=== PATIENT | female | born 1995 | race American Indian/Alaskan Native ===

== ENCOUNTER 2017-06-06 18:08 | Emergency (ER) | payer MEDICAID ==
[2017-06-06 18:24] VITALS: BP 114/80
== END 2017-06-06 21:04 | disposition left against medical advice (07) ==
LOC: ED 18:08
DX: R69 Illness, unspecified (principal); Z53.21 Procedure and treatment not carried out due to patient leaving prior to being seen by health care provider

== ENCOUNTER 2017-09-02 07:10 | Emergency (ER) | payer MEDICAID ==
[2017-09-02 08:50] VITALS: BP 109/58
--- NOTE | 2017-09-02 08:51 | Emergency Department Report ---
- General Chief Complaint: Upper Respiratory Infection Stated Complaint: URI SX Time Seen by Provider: 09/02/17 08:37 Source: patient Mode of arrival: Ambulatory Limitations: No Limitations - History of Present Illness Initial Comments: 22-year-old female past medical history none presents with complaint of persistent cough nonproductive for approximately 2 weeks. Patient is awake alert and oriented 3 speaking in full sentences fully lucid. Denies sore throat or earache. States that she has a persistent cough which keeps her up at night. Denies fever or chills. States that after coughing fits she does become nauseous and has had some vomiting. Denies chest pain and pleuritic chest pain palpitations or shortness of breath at rest. Denies abdominal pain. Denies any recent travel or sick contacts. Does complain of some nasal congestion as well. States she has been taking [id number] medicines with minimal relief of her cough. Denies smoking. MD Complaint: cough Onset/Timin -: week(s) Severity: moderate Consistency: intermittent Associated Symptoms: cough, nausea Treatments Prior to Arrival: "cold medicine" - Related Data Previous Rx's Medication Instructions Recorded Last Taken Type ALBUTEROL Inhaler [ProAir HFA 2 puff IH QID PRN #1 inhalation 06/20/14 Unknown Rx Inhaler] Azithromycin [Zithromax Z-MARLEE] 250 mg PO DAILY #6 tablet 06/20/14 Unknown Rx Benzonatate [Tessalon Perles] 100 mg PO Q8HR PRN #30 capsule 06/20/14 Unknown Rx Prednisone [Prednisone 5 mg (6-Day 5 mg PO .TAPER #1 tab.ds.pk 06/20/14 Unknown Rx Pack, 21 Tabs)] Albuterol Sulfate [Ventolin Hfa] 1 puff IH Q4H PRN #1 hfa.aer.ad 09/02/17 Unknown Rx Azithromycin [Zithromax Z-MARLEE] 250 mg PO QDAY #1 pack 09/02/17 Unknown Rx Benzonatate [Tessalon Perles] 100 mg PO Q8HR PRN #25 capsule 09/02/17 Unknown Rx Brompheniramine/Pseudoephed/Dm 10 ml PO Q6H PRN #1 syrup 09/02/17 Unknown Rx [Bromfed Dm Cough Syrup] Allergies Allergy/AdvReac Type Severity Reaction Status Date / Time No Known Allergies Allergy Unverified 06/20/14 19:26 ED Review of Systems ROS: Stated complaint: URI SX Other details as noted in HPI Constitutional: denies: chills, fever Eyes: denies: eye pain, eye discharge, vision change ENT: denies: ear pain, throat pain Respiratory: cough. denies: shortness of breath, wheezing Cardiovascular: denies: chest pain, palpitations Endocrine: no symptoms reported Gastrointestinal: nausea. denies: abdominal pain, diarrhea Genitourinary: denies: urgency, dysuria, discharge Musculoskeletal: denies: back pain, joint swelling, arthralgia Skin: denies: rash, lesions Neurological: denies: headache, weakness, paresthesias Psychiatric: denies: anxiety, depression Hematological/Lymphatic: denies: easy bleeding, easy bruising ED Past Medical Hx - Past Medical History Previous Medical History?: Yes Additional medical history: vaginal dleivery 06-01-2016 - Surgical History Past Surgical History?: No - Social History Smoking Status: Never Smoker Substance Use Type: Alcohol - Medications Home Medications: Home Medications Medication Instructions Recorded Confirmed Last Taken Type ALBUTEROL Inhaler [ProAir HFA 2 puff IH QID PRN #1 inhalation 06/20/14 Unknown Rx Inhaler] Azithromycin [Zithromax Z-MARLEE] 250 mg PO DAILY #6 tablet 06/20/14 Unknown Rx Benzonatate [Tessalon Perles] 100 mg PO Q8HR PRN #30 capsule 06/20/14 Unknown Rx Prednisone [Prednisone 5 mg (6-Day 5 mg PO .TAPER #1 tab.ds.pk 06/20/14 Unknown Rx Pack, 21 Tabs)] Albuterol Sulfate [Ventolin Hfa] 1 puff IH Q4H PRN #1 hfa.aer.ad 09/02/17 Unknown Rx Azithromycin [Zithromax Z-MARLEE] 250 mg PO QDAY #1 pack 09/02/17 Unknown Rx Benzonatate [Tessalon Perles] 100 mg PO Q8HR PRN #25 capsule 09/02/17 Unknown Rx Brompheniramine/Pseudoephed/Dm 10 ml PO Q6H PRN #1 syrup 09/02/17 Unknown Rx [Bromfed Dm Cough Syrup] ED Physical Exam - General Limitations: No Limitations General appearance: alert, in no apparent distress - Head Head exam: Present: atraumatic, normocephalic - Eye Eye exam: Present: normal appearance - ENT ENT exam: Present: mucous membranes moist - Neck Neck exam: Present: normal inspection - Respiratory Respiratory exam: Present: normal lung sounds bilaterally. Absent: respiratory distress - Cardiovascular Cardiovascular Exam: Present: regular rate, normal rhythm. Absent: systolic murmur, diastolic murmur, rubs, gallop - GI/Abdominal GI/Abdominal exam: Present: soft, normal bowel sounds - Extremities Exam Extremities exam: Present: normal inspection - Back Exam Back exam: Present: normal inspection - Neurological Exam Neurological exam: Present: alert, oriented X3, CN II-XII intact - Psychiatric Psychiatric exam: Present: normal affect, normal mood - Skin Skin exam: Present: warm, dry, intact, normal color. Absent: rash ED Course Vital Signs 09/02/17 07:20 Temperature 98.3 F Pulse Rate 103 H Respiratory 16 Rate Blood Pressure 128/82 O2 Sat by Pulse 97 Oximetry ED Medical Decision Making - Medical Decision Making A/P: Acute bronchitis 1- albuterol inhaler, azithromycin marlee ( 2 weeks of symptoms), Tessalon Perles, Claritin, Bromfed 2- vital signs stable for discharge 3- PERC negative 4-follow-up with primary doctor. I advised patient to follow up with primary care or to return to the ED for any inability to tolerate by mouth fluid or food persistent nausea and vomiting severe fevers and chills or fevers persistently above 100.4 despite antipyretic use, severe lethargy. Patient stated he understood my instructions. I advised patient to remain well- hydrated. Critical care attestation.: If time is entered above; I have spent that time in minutes in the direct care of this critically ill patient, excluding procedure time. ED Disposition Clinical Impression: Acute bronchitis Qualifiers: Bronchitis organism: unspecified organism Qualified Code(s): J20.9 - Acute bronchitis, unspecified Disposition: - TO HOME OR SELFCARE Is pt being admited?: No Does the pt Need Aspirin: No Condition: Stable Instructions: Acute Bronchitis (ED) Prescriptions: Albuterol Sulfate [Ventolin Hfa] 1 puff IH Q4H PRN #1 hfa.aer.ad PRN Reason: Cough Azithromycin [Zithromax Z-MARLEE] 250 mg PO QDAY #1 pack Benzonatate [Tessalon Perles] 100 mg PO Q8HR PRN #25 capsule PRN Reason: Cough Brompheniramine/Pseudoephed/Dm [Bromfed Dm Cough Syrup] 10 ml PO Q6H PRN #1 syrup PRN Reason: Cough Referrals: [facility] [Provider Group] - 3-5 Days [facility] [Outside] - 3-5 Days Forms: Accompanied Note, Work/School Release Form(ED) Time of Disposition: 08:52
== END 2017-09-02 08:58 | disposition home or self-care (01) ==
LOC: ED 07:10
DX: J20.9 Acute bronchitis, unspecified (principal); R11.2 Nausea with vomiting, unspecified
CPT/HCPCS: 99282